=== PATIENT | female | born 1945 | race Caucasian/White ===

== ENCOUNTER 2016-10-21 19:08 | Emergency (ER) | payer MEDICARE ==
[2016-10-21 19:17] VITALS: BP 119/83
[2016-10-21] MEDS ORDERED: Tetan/Diph/Pertus SYR(Tdap)* 0.5 ML SYR(BOOSTRIX) use SYR IM ONE (19:19)
--- NOTE | 2016-10-21 19:36 | UC ---
Laceration HPI - HPI Summary HPI Summary: The patient comes in today for: 1. Left hand injury/laceration: Onset: 30 minutes ago. Palliative/provocative: Touch makes it more sore. Rest makes it better. Quality: Burning. Region: Proximal hypothenar eminence. Severity: 10 Time: Constant. Associated symptoms: Event: She was heating chocolate in the microwave. She reached in and was taking out a dish and it cracked. The sharp edge scraped against her left hand. Tetanus: She does not know--more than 10 years ago. * - History Of Current Complaint Chief Complaint: UCLaceration Stated Complaint: HAND LACERATION Time Seen by Provider: 10/21/16 19:19 Hx Obtained From: Patient - Allergies/Home Medications Allergies/Adverse Reactions: Allergies Allergy/AdvReac Type Severity Reaction Status Date / Time No Known Allergies Allergy Verified 09/25/15 09:02 PMH/Surg Hx/FS Hx/Imm Hx Previously Healthy: No - Glaucoma, hx of chest pain on NTG. Endocrine History Of: Denies: Diabetes, Thyroid Disease, Hyperthyroidism, Hypothyroidism, Dyslipidemia Cardiovascular History Of: Denies: Cardiac Disorders, Hypertension, Pacemaker/ICD, Myocardial Infarction , Congestive Heart Failure, Atrial Fibrillation, Deep Vein Thrombosis, Bleeding Disorders Respiratory History Of: Denies: COPD, Asthma, Bronchitis, Pneumonia, Pulmonary Embolism GI/ History Of: Denies: Gastroesophageal Reflux, Ulcer, Gastrointestinal Bleed, Gall Bladder Disease, Kidney Stones, Diverticulitis, Renal Disease, Urosepsis Neurological History Of: Denies: TIA, CVA, Dementia, Seizures, Migraine Psychological History Of: Reports: Anxiety - SITUATIONAL- RECENT MOVE FROM [facility]. Will take it at night. Denies: Depression, Bipolar Disorder, Schizophrenia, Post Traumatic Stress Disorder Cancer History Of: Denies: Lung Cancer, Colorectal Cancer, Breast Cancer, Prostate Cancer, Cervical Cancer Other History Of: Anticoagulant Therapy - "I take aspirin when I remember to take it." Negative For: HIV, Hepatitis B, Hepatitis C - Surgical History Surgical History: Yes Surgery Procedure, Year, and Place: HYSTERECTOMY 1997. WISOM TEETH REMOVAL - Family History Known Family History: Positive: Cardiac Disease, Hypertension - Social History Occupation: Employed Full-time Alcohol Use: Occasionally Substance Use Type: None Smoking Status (MU): Former Smoker Have You Smoked in the Last Year: No When Did the Patient Quit Smoking/Using Tobacco: 1974 Review of Systems Constitutional: Negative Skin: Negative Eyes: Negative ENT: Negative Respiratory: Negative Cardiovascular: Negative Gastrointestinal: Negative Genitourinary: Negative All Other Systems Reviewed And Are Negative: Yes Physical Exam Triage Information Reviewed: Yes Appearance: Well-Appearing, No Pain Distress, Well-Nourished Vital Signs: Initial Vital Signs Temp 97.7 F 10/21/16 19:13 Pulse 73 10/21/16 19:13 Resp 18 10/21/16 19:13 BP 119/83 10/21/16 19:13 Pulse Ox 98 10/21/16 19:13 Vital Signs Reviewed: Yes Eyes: Positive: Conjunctiva Clear. Negative: Discharge ENT: Positive: Hearing grossly normal. Negative: Pharyngeal erythema, Nasal congestion, Nasal drainage, TM bulging, TM dull, TM red, Tonsillar swelling, Tonsillar exudate Dental: Negative: Gross Decay/Caries @, Dental Fracture @ Neck: Positive: Supple, Nontender, No Lymphadenopathy. Negative: Nuchal Rigidity Respiratory: Positive: Chest non-tender, Lungs clear, No respiratory distress, No accessory muscle use. Negative: Crackles, Wheezing Cardiovascular: Positive: RRR, No Murmur Abdomen Description: Positive: Nontender, No Organomegaly, Soft, Distended Musculoskeletal: Positive: Strength Intact, ROM Intact, No Edema Neurological: Positive: Alert, Muscle Tone Normal Psychological: Positive: Age Appropriate Behavior, Consolable Skin: Positive: Other - L. Negative: rashes - Laceration of the proximal hypothenar eminence., breakdown Laceration Repair - Laceration Repair 1 Description: Linear Laceration Size After Repair: Length (cm) - 1.5, Width (mm) - 3, Depth (mm) - 3 Type Injection: Local Anesthesia Used: 2.0% Lido Additive Used (in ml): Epi Closure Material: Sutures Closure Method: Single Layer Suture Of: Skin Suture Type: Nylon - 3-0 nylon. Laceration Course/Dx - Differential Dx - Laceration/Wound Differental Diagnoses: Avulsion, Cellulitis, Hematoma Provider Diagnoses: Laceration of the left proximal hypothenar eminence. Discharge - Discharge Plan Condition: Stable Disposition: HOME Patient Education Materials: Care For Your Stitches (ED), Laceration (ED) Additional Instructions: Please see your primary care provider or us in 12-14 days to have your sutures removed. Inspect the area daily watching for increased redness, tenderness, swelling or drainage. Gently clean the area with a mild soap such as Dove (without any scents or colorings) and apply Polysporin ointment to the wound. Cover with a non-stick dressing ( Telfa) for the rest of the day. When resting, you may expose the wound to light and air, but not direct sunlight. If there is any oozing, apply pressure. Apply cold compresses to the area for the first 1-2 days. Use [id number] pain medications as needed for pain. Cold compresses can help with pain reduction also. YOu may also use Alireza's Baby Shampoo to clear the area. Keep elevated and take Tylenol as needed for pain.
[2016-10-21] MEDS ORDERED: Lidocaine 2% W/EPI 1:100,000* 20 ML MDV ONE (19:50)
== END 2016-10-21 20:20 | disposition home or self-care (01) ==
LOC: UCEAST 19:08
DX: S61.412A Laceration without foreign body of left hand, initial encounter (principal); W25.XXXA Contact with sharp glass, initial encounter; Y93.G1 Activity, food preparation and clean up; Y92.9 Unspecified place or not applicable; Z87.891 Personal history of nicotine dependence; Z23 Encounter for immunization
CPT/HCPCS: 12001; 90715; 99211; G0463